=== PATIENT | male | born 1975 | race African-American/Black ===

== ENCOUNTER 2020-12-24 21:14 | Emergency (ER) | payer OTHER ==
[2020-12-25 00:31] LABS: HEMOGLOBIN 14.9 gm/dl (14.0-17.5); RED BLOOD COUNT 4.88 M/UL (4.20-5.50); WHITE BLOOD COUNT 8.1 K/UL (4.5-11.0)
[2020-12-25 00:50] LABS: BUN/CREATININE RATIO 9 (0-10)
== END 2020-12-25 01:30 | disposition home or self-care (01) ==
LOC: ER1 21:14
PROVIDERS: Family Medicine; Physician Assistant
DX: F19.10 Other psychoactive substance abuse, uncomplicated (principal); R45.850 Homicidal ideations; F17.200 Nicotine dependence, unspecified, uncomplicated; I10 Essential (primary) hypertension
CPT/HCPCS: 73030; 80053; 80307; 85025; 99283; G0480